=== PATIENT | female | born 1970 | race Caucasian/White ===

== ENCOUNTER → 2017-08-10 | Emergency (ER) | payer BC ==
[~2017-08-10] VITALS: Ht 165.1 cm; Wt 89.8 kg
[~2017-08-10] MED LIST: ALBUTEROL SULF8.5 GM INH; ALLERGY PILL; CEPHALEXIN500 MG PO; CIPRO500 MG PO; DOXYCYCLINE HY100 MG PO; FLAGYL500 MG PO; IBUPROFEN400 MG PO; MELOXICAM15 MG PO; NORCO 5-325 TA1 EACH PO; PREDNISONE20 MG PO
== END ==
LOC: ED 16:34
DX: J45.901 Unspecified asthma with (acute) exacerbation (principal); Z98.51 Tubal ligation status; Z90.49 Acquired absence of other specified parts of digestive tract; Z98.890 Other specified postprocedural states; Z88.2 Allergy status to sulfonamides; Z88.0 Allergy status to penicillin; Z88.5 Allergy status to narcotic agent
CPT/HCPCS: 71020; 94640; 99284; J7512

== ENCOUNTER 2018-04-05 15:12 | Emergency (ER) | payer BC ==
[~2018-04-05] VITALS: Ht 165.1 cm; Wt 89.8 kg
[2018-04-05] MEDS ORDERED: ADVAIR 250-501 EACH INH (15:21)
== END 2018-04-05 15:26 | disposition home or self-care (01) ==
LOC: ED 15:12
DX: M54.5 Low back pain (principal)

== ENCOUNTER 2018-10-28 05:30 | Day surgery (SDC) | payer BC, OTHER ==
[~2018-10-28] VITALS: Ht 165.1 cm; Wt 96.2 kg
[~2018-10-28 05:30] MED LIST changes: +ADVAIR 250-501 EACH INH; +SINGULAIR10 MG PO; +VITAMIN D2000 UNIT PO
--- NOTE | 2018-10-28 08:18 | NUR ---
10/28/18 0818 Sheets,Mayda 0802 PT ARRIVED TO PACU ON 10L VIA MASK, RESP EVEN AND UNLABORED. PT REACTIVE TO TACTILE STIMULI. 0805 PT WAKES TO VERBAL STIMULI AND O2 MASK IS REMOVED. PT DENIES NAUSEA AND PAIN. PT BACK TO SLEEP. 0816 PT MORE AWAKE AND REPORTS PAIN 2/10 AND TOLERABLE AT THIS TIME. PLAN OF CARE DISCUSSED WITH PT. PT RESTING IN BED WITH EYES OPEN, NO MOANING OR GRIMACING NOTED.
--- NOTE | 2018-10-28 08:48 | NUR ---
0840- PT ARRIVES BACK TO DS ROOM 4 FROM PACU ON RA. RESP EVEN AND UNLABORED. PT DENIES NAUSEA AND REPORTS 2/10 PAIN THAT IS JUST "DISCOMFORT". SHARONDA PAD IN PLACE C/D/I. IV SITE WNL. PT PROVIDED WITH FRESH WATER.
[2018-10-28] MEDS ORDERED: MOTRIN IB200 MG PO (09:06)
[2018-10-28] MEDS ORDERED: NORCO 5-325 TA1 EACH PO (09:06)
--- NOTE | 2018-10-28 09:42 | NUR ---
PT AMBULATES TO BATHROOM. TOLERATES AND ABLE TO VOID. 150 ML URINE. PT DENIES NAUSEA AND TOLERATES FOOD AND WATER. PT REPORTS 1/10 PAIN. PT MEETS DC CRITERIA. IV DC'D WNL.
--- NOTE | 2018-10-28 10:13 | NUR ---
1000- PT MEETS DC CRITERIA DC INSTRUCTIONS WITH PRECAUTIONS PROVIDED TO PT. PRESCRIPTION GIVEN. PT VERBALIZES UNDERSTANDING AND ALL QUESTIONS ANSWERED. VSS. SHARONDA PAD WITH VERY SCANT DRAINAGE CHANGED. PT TRANSPORTED IN WHEELCHAIR TO [facility].
--- NOTE | 2018-11-01 08:05 | OR ---
[facility] [address] [place] [id number] Signed DATE OF OPERATION: 10/28/2018 SURGEON: Brando Moise DO PREOPERATIVE DIAGNOSES: 1. Postmenopausal bleeding. 2. Endocervical mass. POSTOPERATIVE DIAGNOSES: 1. Postmenopausal bleeding. 2. Endocervical mass. PROCEDURES PERFORMED: 1. Hysteroscopy. 2. Dilation and curettage. 3. Hysteroscopic excision of endocervical mass. ANESTHESIA: General. ESTIMATED BLOOD LOSS: 10 mL. FLUID DEFICIT: 200 mL. SPECIMENS: 1. Endometrial curettings. 2. Endocervical mass. FINDINGS: Normal external genitalia with moderate uterine descensus; patient would be a good candidate for TLH or TVH if hysterectomy required in the future. On hysteroscopy, polypoid endocervical mass. Normal endometrial/uterine cavity without endometrial thickening or masses. COMPLICATIONS: None. INDICATIONS: Electronically Signed By: BRANDO MOISE DO 11/01/18 0805 PATIENT NAME: ALEXY SANCHEZ OPERATIVE REPORT DATE OF : 66 REPORT #: [id number] PHYSICIAN: BRANDO MOISE DO PCP: ROMÁN VERA MD REPORT IS CONFIDENTIAL AND NOT TO BE RELEASED WITHOUT AUTHORIZATION [address] [address] Signed Ms. Sanchez is a pleasant 48-year-old postmenopausal female who presented for annual exam and complained of postmenopausal bleeding. Ultrasound was performed that demonstrated a thin endometrial stripe of 2 mm, however, a thickened endocervical mass at 11 mm. The patient was consented for hysteroscopy, D and C, and excision of endocervical mass. Risks, benefits, and alternatives were discussed in detail with the patient. Patient understands and wishes to proceed with procedure. TECHNIQUE: The patient was taken to the operating room where a time-out was performed to confirm correct patient and correct procedure. General anesthesia was adequately established. Patient was prepped and draped in the dorsal lithotomy position with the feet in Yellofin stirrups. ICPs were on running and no preoperative antibiotics or heparin were indicated. The bladder was drained. A weighted speculum was placed in vagina and the anterior lip of the cervix was grasped with an Allis clamp. The cervix was gently dilated to a depth of approximately 2 cm using Hegar dilators. An operative hysteroscope was then placed in cervical os and gently advanced under direct visualization through the endocervical canal into the uterine cavity. Some thickening polypoid tissue was noted in the endocervical canal. Uterine cavity appears normal on postmenopausal with thin endometrium and no endometrial masses, polyps, or fibroids. Normal tubal ostia bilaterally. Circumferential curettage of the endometrium was performed using MyoSure Lite device. This was sent to pathology for further evaluation. This hysteroscope was slowly withdrawn and MyoSure Lite device was used to excise the polypoid tissue in the endocervix. This was removed as completely as could be performed with very little to no residual mass remaining. This tissue was then sent to pathology for further evaluation. A small amount of bleeding was noted and bimanual pressure was held and the bleeding quickly resolved. The patient was then taken to PACU in good and stable condition. Sponge, needle, instrument count were correct x2 at the end of procedure. Brando Moise DO JDW/MODL /[id number] Copies: Electronically Signed By: BRANDO MOISE, DO 11/01/18 0805 PATIENT NAME: DANIELALEXYTANYA MACDONALD OPERATIVE REPORT DATE OF : 66 REPORT #: [id number] PHYSICIAN: BRANDO MOISE DO PCP: ROMÁN VERA MD REPORT IS CONFIDENTIAL AND NOT TO BE RELEASED WITHOUT AUTHORIZATION [facility] [address] [place] [address] [place] [id number] Signed ~ Electronically Signed By: BRANDO MOISE, DO 11/01/18 0805 PATIENT NAME: DANIELALEXYTANYA MACDONALD OPERATIVE REPORT DATE OF : 66 REPORT #: [id number] PHYSICIAN: BRANDO MOISE DO PCP: ROMÁN VERA MD REPORT IS CONFIDENTIAL AND NOT TO BE RELEASED WITHOUT AUTHORIZATION
== END 2018-10-28 10:00 | disposition home or self-care (01) ==
LOC: DS 05:30 → OPS 05:30 → DS 08:45 → OPS 08:45
PROVIDERS: Obstetrics & Gynecology
PROC: 0UB98ZZ Excision of Uterus, Via Natural or Artificial Opening Endoscopic (ICD-10-PCS; principal; 2018-10-28 06:45)
PROC: 0UDB8ZZ Extraction of Endometrium, Via Natural or Artificial Opening Endoscopic (ICD-10-PCS; 2018-10-28 06:45)
DX: D26.0 Other benign neoplasm of cervix uteri (principal); N84.0 Polyp of corpus uteri; E55.9 Vitamin D deficiency, unspecified; J45.50 Severe persistent asthma, uncomplicated; K21.9 Gastro-esophageal reflux disease without esophagitis; Z88.0 Allergy status to penicillin; Z88.2 Allergy status to sulfonamides; Z88.5 Allergy status to narcotic agent; Z79.899 Other long term (current) drug therapy; Z79.51 Long term (current) use of inhaled steroids
CPT/HCPCS: 00952; J1100; J1170; J1885; J2250; J2405; J2704; J3010; J7120

== ENCOUNTER 2020-11-30 16:35 | Emergency (ER) | payer BC ==
[~2020-11-30] VITALS: Ht 165.1 cm; Wt 102.1 kg
[~2020-11-30 16:35] MED LIST changes: +MOTRIN IB200 MG PO
[2020-11-30] MEDS ORDERED: FAMOTIDINE20 MG PO (17:04)
[2020-11-30] MEDS ORDERED: CIPRO500 MG PO (19:21)
[2020-11-30] MEDS ORDERED: FLAGYL500 MG PO (19:21)
== END 2020-11-30 21:17 | disposition home or self-care (01) ==
LOC: ED 16:35
DX: K57.32 Diverticulitis of large intestine without perforation or abscess without bleeding (principal); Z88.2 Allergy status to sulfonamides; Z88.0 Allergy status to penicillin; Z88.5 Allergy status to narcotic agent; Z79.899 Other long term (current) drug therapy
CPT/HCPCS: 74177; 80053; 81001; 85025; 99284-25; J0744; J1170; J2405; J7030

== ENCOUNTER 2024-11-02 12:52 | Emergency (ER) | payer BC ==
[~2024-11-02] VITALS: Ht 165.1 cm; Wt 108.9 kg
[~2024-11-02 12:52] MED LIST changes: +FAMOTIDINE20 MG PO
[2024-11-02 14:22] LABS: BASOPHILS 0.2 % (0-2); EOSINOPHILS 0.3 % (0-6); HEMATOCRIT 42.5 % (35.0-50.0); HEMOGLOBIN 15.1 g/dL (12.0-18.0); LYMPHOCYTES 12.6 % (24-44); MCH 31.1 (27-36); MCHC 35.4 g/dl (30-36); MCV 87.7 fl (81-99); MONOCYTES 8.2 % (0-12); NEUTROPHILS 78.7 % (39-80); PLATELET COUNT 236 K/uL (140-440); RBC 4.85 M/ul (4.3-5.7); RDW 13.3 (10.5-15.0)
[2024-11-02 14:37] LABS: ALBUMIN/GLOBULIN RATIO 0.98 (1.1-2.4); ANION GAP 14.6 (7-21); BILIRUBIN, TOTAL 0.9 ng/dL (0.2-1.0); BUN/CREATININE RATIO 12.94 (6.0-28.6); CALCIUM 9.6 mg/dL (8.5-10.1); CREATININE, SERUM 0.85 mg/dL (0.55-1.02); POTASSIUM 3.6 mmol/L (3.5-5.1); PROTEIN, TOTAL 8.1 g/dL (6.4-8.2)
[2024-11-02 15:12] LABS: BILIRUBIN, URINE NEGATIVE (negative); BLOOD/HGB, URINE NEGATIVE (Negative); KETONE, URINE TRACE (Negative); LEUK ESTERASE, URINE TRACE (negative); NITRITE, URINE NEGATIVE (negative); PH, URINE 5.5 (5-7)
[2024-11-02 15:18] LABS: BACTERIA, URINE RARE /hpf (negative); CASTS, URINE NONE SEEN \\lpf; COLLECTION TYPE, URINE CLEAN CATCH; CRYSTALS, URINE NONE SEEN (0-1+); EPITHELIAL CELLS, URINE SQUAMOUS 3+ /lpf (0-1+); RED BLOOD CELLS, URINE 0-1 /hpf (0-5); REFLEX CULTURE, URINE No (No)
[2024-11-02] MEDS ORDERED: METRONIDAZOLE500 MG PO (18:25)
[2024-11-02] MEDS ORDERED: CIPRO500 MG PO (18:25)
[2024-11-02] MEDS ORDERED: CIPROFLOXACIN 500 MG TAB PO ONE (18:30)
[2024-11-02] MEDS ORDERED: metroNIDAZOLE 250 MG TAB PO ONE (18:30)
[2024-11-02 18:45] VITALS: BP 141/85
== END 2024-11-02 18:45 | disposition home or self-care (01) ==
LOC: ED 12:52
PROVIDERS: Internal Medicine
DX: K57.32 Diverticulitis of large intestine without perforation or abscess without bleeding (principal); Z88.2 Allergy status to sulfonamides; Z88.0 Allergy status to penicillin; Z88.5 Allergy status to narcotic agent; Z79.51 Long term (current) use of inhaled steroids; Z79.899 Other long term (current) drug therapy
CPT/HCPCS: 36415; 74177; 80053; 81001; 83615; 83690; 85025; 99284-25; Q9967

== ENCOUNTER 2024-12-31 12:27 | Emergency (ER) | payer BC ==
[~2024-12-31] VITALS: Ht 165.1 cm; Wt 108.6 kg
[~2024-12-31 12:27] MED LIST changes: +METRONIDAZOLE500 MG PO
[2024-12-31] MEDS ORDERED: TRIAMCINOLONE A15 G4 TOP (12:36)
[2024-12-31 12:58] LABS: BASOPHILS 0.1 % (0-2); EOSINOPHILS 0.3 % (0-6); HEMATOCRIT 39.7 % (35.0-50.0); HEMOGLOBIN 14.3 g/dL (12.0-18.0); LYMPHOCYTES 10.6 % (24-44); MCH 30.9 (27-36); MCHC 35.9 g/dl (30-36); MONOCYTES 9.2 % (0-12); NEUTROPHILS 79.8 % (39-80); PLATELET COUNT 227 K/uL (140-440); RBC 4.62 M/ul (4.3-5.7); RDW 13.3 (10.5-15.0)
[2024-12-31 13:12] LABS: ALBUMIN/GLOBULIN RATIO 1.08 (1.1-2.4); ANION GAP 10.7 (7-21); BILIRUBIN, TOTAL 0.9 mg/dL (0.2-1.0); BUN/CREATININE RATIO 12.64 (6.0-28.6); CALCIUM 8.7 mg/dL (8.5-10.1); CREATININE, SERUM 0.87 mg/dL (0.55-1.02); POTASSIUM 3.7 mmol/L (3.5-5.1); PROTEIN, TOTAL 7.7 g/dL (6.4-8.2)
[2024-12-31] MEDS ORDERED: CIPRO500 MG PO (14:10)
[2024-12-31] MEDS ORDERED: METRONIDAZOLE500 MG PO (14:10)
[2024-12-31 14:35] VITALS: BP 139/76
== END 2024-12-31 14:35 | disposition home or self-care (01) ==
LOC: ED 12:27
PROVIDERS: Emergency Medicine
DX: K57.92 Diverticulitis of intestine, part unspecified, without perforation or abscess without bleeding (principal); Z88.2 Allergy status to sulfonamides; Z88.0 Allergy status to penicillin; Z88.5 Allergy status to narcotic agent; Z79.899 Other long term (current) drug therapy
CPT/HCPCS: 36415; 80053; 83690; 85025; 99284

== ENCOUNTER 2025-05-26 06:02 | Emergency (ER) | payer BC ==
[~2025-05-26] VITALS: Ht 165.1 cm; Wt 108.6 kg
[~2025-05-26 06:02] MED LIST changes: +TRIAMCINOLONE A15 G4 TOP
[2025-05-26] MEDS ORDERED: SODIUM CHLORIDE 0.9% 500 ML IV PRN (06:30)
[2025-05-26] MEDS ORDERED: fentaNYL citrate 100 MCG/2 ML VIAL IV ONE (06:30)
[2025-05-26 06:31] LABS: BLOOD/HGB, URINE TRACE-I (Negative); KETONE, URINE NEGATIVE (Negative); LEUK ESTERASE, URINE NEGATIVE (negative); NITRITE, URINE NEGATIVE (negative)
[2025-05-26 06:42] LABS: EPITHELIAL CELLS, URINE SQUAMOUS 2+ /lpf (0-1+)
[2025-05-26 06:43] LABS: BACTERIA, URINE NONE SEEN /hpf (negative); CRYSTALS, URINE NONE SEEN (0-1+)
[2025-05-26 06:44] LABS: CASTS, URINE NONE SEEN \\lpf; REFLEX CULTURE, URINE No (No)
[2025-05-26 07:00] LABS: ALT (SGPT) 53.0 U/L (14-59); AST (SGOT) 15.0 U/L (15-37); GLOMERULAR FILTRATION RATE,EST 41.0 mL/min (>60); PROTEIN, TOTAL 7.1 g/dL (6.4-8.2); UREA NITROGEN 23.0 mg/dL (7-18)
[2025-05-26 07:13] LABS: BASOPHILS 0.3 % (0.1-1.2); EOSINOPHILS 1.0 % (0.7-5.8); LYMPHOCYTES 15.1 % (19.3-51.7); MCH 30.7 PG (25.6-32.2); MCHC 35.2 g/dL (32.2-35.5); MCV 87.0 fL (79.4-94.8); MONOCYTES 11.6 % (4.7-12.5); NEUTROPHILS 71.6 % (34.0-71.1); RBC 4.40 M/uL (3.93-5.22)
[2025-05-26] MEDS ORDERED: ONDANSETRON ODT8 MG PO (07:29)
[2025-05-26] MEDS ORDERED: METRONIDAZOLE500 MG PO (07:29)
[2025-05-26] MEDS ORDERED: HYDROCODON-ACE1 EA10 PO (07:29)
[2025-05-26] MEDS ORDERED: CIPRO500 MG PO (07:29)
[2025-05-26] MEDS ORDERED: HYDROCODONE BIT/ACETAMINOPHEN 5/325 MG 1 TAB HOME.PACK PO ONE (07:30)
[2025-05-26] MEDS ORDERED: ONDANSETRON 4 MG HOME.PACK SL ONE (07:45)
[2025-05-26] MEDS ORDERED: CIPROFLOXACIN 500 MG TAB PO ONE (07:45)
[2025-05-26] MEDS ORDERED: metroNIDAZOLE 250 MG HOME.PACK PO ONE (07:45)
[2025-05-26 07:55] VITALS: BP 155/89
== END 2025-05-26 08:03 | disposition home or self-care (01) ==
LOC: ED 06:02
PROVIDERS: Family Medicine
DX: K57.32 Diverticulitis of large intestine without perforation or abscess without bleeding (principal); Z88.0 Allergy status to penicillin; Z88.2 Allergy status to sulfonamides; Z88.5 Allergy status to narcotic agent; Z79.899 Other long term (current) drug therapy
CPT/HCPCS: 36415; 74177; 80053; 81001; 83690; 83735; 85025; 96374; 99284-25; A9270; J2405; J7040; Q9967